=== PATIENT | male | born 1950 | race Caucasian/White ===

== ENCOUNTER 2016-09-08 15:13 | Emergency (ER) | payer OTHER, MEDICAID ==
--- NOTE | 2016-09-08 15:11 | EDPHY ---
H & P Constitutional: Initial Vital Signs Temperature (C) 37.0 C 09/08/16 16:00 Heart Rate 72 09/08/16 16:00 Respiratory Rate 16 09/08/16 16:00 Blood Pressure 109/73 09/08/16 16:00 O2 Sat (%) 93 09/08/16 16:00 O2 Delivery Mode Nasal Cannula O2 (L/minute) 2 Allergies/Adverse Reactions: No Known Drug Allergies Allergy (Verified 09/08/16 16:45) Medical Decision Making - Diagnostics Imaging Results: Imaging Impressions Chest X-Ray 09/08/16 15:20 Impression: Findings suggestive of airways disease are noted with no superimposed acute abnormality identified. Imaging: I viewed and interpreted images myself (Negative.) ED Course/Re-evaluation: CHIEF COMPLAINT: Syncope HISTORY OF PRESENT ILLNESS: This patient is a 65-year-old male arriving by EMS under Cardiac Alert who presents to the Emergency Department following two witnessed episodes of syncope this afternoon. He reports that he was standing in a food line when he felt overheated and lightheaded prior to his first syncopal episode. Per EMS, he was pale and diaphoretic at the time of their arrival and had one additional episode of syncope prior to transport. Upon arrival, he complains of persistent generalized weakness. He denies dyspnea, chest pain or pressure, or any additional complaints. He denies history of cardiac disease. REVIEW OF SYSTEMS: A 10 point review of systems was performed and is negative with the exception of the elements mentioned in the history of present illness. PHYSICAL EXAM: HR, BP, O2 Sat, RR. Temp noted General Appearance: Alert, well hydrated, appropriate, and non-toxic appearing. Head: Atraumatic without scalp tenderness or obvious injury Eyes: Pupils equal, round, reactive to light and accommodation, EOMI, no trauma , no injection. Ears: Clear bilaterally, no perforation, normal landmarks Nose: Atraumatic, no rhinorrhea, clear. Throat: There is no erythema or exudates, no lesions, normal tonsils, mucus membranes moist. Neck: Supple, 2+ carotid upstroke, nontender, no lymphadenopathy. Respiratory: No retractions, no distress, no wheezes, and no accessory muscle use. Lungs are clear to auscultation bilaterally. Cardiovascular: Regular rate and rhythm, no murmurs, rubs, or gallops. Bilateral carotid, radial, dorsalis pedis, and posterior tibial pulses intact. Good capillary refill all extremities. Gastrointestinal: Abdomen is soft, nontender, non-distended, no masses, no rebound, no guarding, no peritoneal signs. Musculoskeletal: Normal active ROM of all extremities, atraumatic. Neurological: Alert, appropriate, and interactive. The patient has normal DTRs and non-focal cranial nerves, motor, sensory, and cerebellar exam. Skin: No rashes, good turgor, no nodules on palpation. Past medical history: Denies. Past surgical history: Denies. Family history: Denies. Social history: Lives in [facility]. Airlifted in from [place]. No tobacco use. Smokes marijuana occasionally. DIFFERENTIAL DIAGNOSIS: The differential diagnosis for the patient's syncope included but was not limited to vasovagal syncope, arrhythmia, dehydration, cardiogenic causes, neurogenic causes, and blood loss. EKG INTERPRETATION: The 12 lead EKG was interpreted by myself: Sinus rhythm, rate 72; borderline prolonged QT interval; nonspecific T abnormalities in lateral leads; non- ischemic. See hard copy and/or "tracemaster" electronic copy for interpretation. MEDICAL DECISION MAKIN: Cardiac alert called in by EMS. 1510: Dr. Rivera, management trainee marketing, at bedside. 1513: Took EMS report at bedside. 1515: Cardiac alert downgraded by myself and Dr. Rivera after obtaining an EKG without ST changes. This 65-year-old male presents following two syncopal episodes with complaint of persistent generalized weakness. Cardiac alert was originally called by EMS but has since been downgraded by myself after EKG was obtained without apparent ST changes. At time of arrival, he is alert and answering questions appropriately. He denies chest pain or pressure. He has no significant findings on exam. Vital signs within normal limits. Will proceed with labs and chest x- ray. Labs obtained and are unremarkable. Chest x-ray is normal. I discussed results with my patient and my suspicion of vasovagal syncopal episode. I recommended to him that he establish care with a PCP and follow-up this week. He is given at-home care instructions and customary return precautions. He will be discharged home in good condition. - Data Points Laboratory Results: Laboratory Results 09/08/16 15:18 09/08/16 15:18 09/08/16 09/08/16 09/08/16 15:18 15:18 15:18 WBC 8.38 10^3/uL 10^3/uL (3.80-9.50) RBC 5.37 10^6/uL 10^6/uL (4.40-6.38) Hgb 17.4 g/dL g/dL (13.7-17.5) Hct 48.0 % % (40.0-51.0) MCV 89.4 fL fL (81.5-99.8) MCH 32.4 pg pg (27.9-34.1) MCHC 36.3 g/dL g/dL (32.4-36.7) RDW 13.6 % % (11.5-15.2) Plt Count 301 10^3/uL 10^3/uL (150-400) MPV 9.4 fL fL (8.7-11.7) Neut % (Auto) 78.9 % H % (39.3-74.2) Lymph % (Auto) 11.2 % L % (15.0-45.0) [place] % (Auto) 8.7 % % (4.5-13.0) Eos % (Auto) 0.2 % L % (0.6-7.6) Baso % (Auto) 0.5 % % (0.3-1.7) Nucleat RBC Rel Count 0.0 % % (0.0-0.2) Absolute Neuts (auto) 6.61 10^3/uL H 10^3/uL (1.70-6.50) Absolute Lymphs (auto) 0.94 10^3/uL L 10^3/uL (1.00-3.00) Absolute Monos (auto) 0.73 10^3/uL 10^3/uL (0.30-0.80) Absolute Eos (auto) 0.02 10^3/uL L 10^3/uL (0.03-0.40) Absolute Basos (auto) 0.04 10^3/uL 10^3/uL (0.02-0.10) Absolute Nucleated RBC 0.00 10^3/uL 10^3/uL (0-0.01) Immature Gran % 0.5 % % (0.0-1.1) Immature Gran # 0.04 10^3/uL 10^3/uL (0.00-0.10) Turbidity Cancelled Sodium 139 mEq/L mEq/L Cancelled (134-144) Potassium 4.8 mEq/L mEq/L Cancelled (3.5-5.2) Chloride 103 mEq/L mEq/L Cancelled (97-110) Carbon Dioxide 20 mEq/l L mEq/l Cancelled (22-31) Anion Gap 16 mEq/L mEq/L Cancelled (8-16) BUN 35 mg/dL H mg/dL Cancelled (7-23) Creatinine 1.3 mg/dL mg/dL Cancelled (0.7-1.3) Estimated GFR 55 Cancelled Glucose 153 mg/dL H mg/dL Cancelled (70-100) Calcium 10.0 mg/dL mg/dL Cancelled (8.5-10.4) Magnesium 2.2 mg/dL mg/dL Cancelled (1.6-2.3) Troponin I < 0.012 ng/mL ng/mL (0-0.034) NT-Pro-B Natriuret Pep 481 pg/mL H pg/mL (0-125) Specimen Hemolysis Cancelled Departure - Departure Disposition: Home, Routine, Self-Care Clinical Impression: Vasovagal syncope Condition: Good Instructions: Syncope (ED) Additional Instructions: 1. Drink plenty of fluids and rest until you are feeling back to normal. 2. Follow-up with a primary care provider for further evaluation in the next 5- 7 days. We have referred you to either our on-call Line Inspector or, if you would like to establish care with [facility], we have included their contact information for you as well. 3. Return to the Emergency Department if you experience additional fainting episodes or chest pain, shortness of breath, dizziness, or other serious concerns. Referrals: Graciela Carreon MD [[facility] Primary Care Provider] - As per Instructions [facility],. [Clinic] - As per Instructions Report Scribed for: Roby Perez Report Scribed by: Danelle Mcdaniel Date of Report: 09/08/16 Time of Report: 15:13
[2016-09-08] MEDS ORDERED: ONDANSETRON 4 MG/2 ML VIAL ONE (15:25)
--- NOTE | 2016-09-08 15:29 | CPEKG ---
Heart Rate: 72 RR Interval: 833 P-R Interval: 164 QRSD Interval: 90 QT Interval: 436 QTC Interval: 478 P [place]: 62 QRS [place]: 73 T Wave [place]: 92 EKG Severity - ABNORMAL ECG - EKG Impression: SINUS RHYTHM EKG Impression: NONSPECIFIC T ABNORMALITIES, LATERAL LEADS EKG Impression: BORDERLINE PROLONGED QT INTERVAL Electronically Signed By: Roby Perez 08-Sep-2016 20:16:29
[2016-09-08 15:30] LABS: % IMMATURE GRANULYOCYTES 0.5 % (0.0-1.1); ABSOLUTE IMMATURE GRANULOCYTES 0.04 10^3/uL (0.00-0.10); ADD DIFF? NO; ADD MORPH? NO; ADD SCAN? NO; ATYPICAL LYMPHOCYTE FLAG 20 (0-99); FRAGMENT RBC FLAG 0 (0-99); HEMOGLOBIN 17.4 g/dL (13.7-17.5); LEFT SHIFT FLG 10 (0-99); LIPEMIA HEMOLYSIS FLAG 90 (0-99); MEAN CELL HEMOGLOBIN 32.4 pg (27.9-34.1); MEAN CELL HEMOGLOBIN CONCENTR. 36.3 g/dL (32.4-36.7); MEAN CELL VOLUME 89.4 fL (81.5-99.8); MEAN PLATELET VOLUME 9.4 fL (8.7-11.7); PLATELET CLUMPS FLAG 40 (0-99); PLATELET COUNT 301 10^3/uL (150-400); RED BLOOD CELL COUNT 5.37 10^6/uL (4.40-6.38); RED CELL DISTRIBUTION WIDTH 13.6 % (11.5-15.2)
[2016-09-08 15:50] LABS: ANION GAP 16 mEq/L (8-16); CARBON DIOXIDE 20 mEq/l (22-31); CHLORIDE 103 mEq/L (97-110); CREATININE 1.3 mg/dL (0.7-1.3); GLOMERULAR FILTRATION RATE 55; GLUCOSE 153 mg/dL (70-100); MAGNESIUM 2.2 mg/dL (1.6-2.3); POTASSIUM 4.8 mEq/L (3.5-5.2); SODIUM 139 mEq/L (134-144)
[2016-09-08 15:51] LABS: TROPONIN I < 0.012 ng/mL (0-0.034)
[2016-09-08 16:37] VITALS: RESP 16
[2016-09-08 17:22] VITALS: BP 109/71; PULSE 75; TEMP 98.1; O2SAT 92
== END 2016-09-08 17:20 | disposition home or self-care (01) ==
LOC: EDUNIT#
DX: R55 Syncope and collapse (principal)
CPT/HCPCS: 71020; 93005; J2405

== ENCOUNTER 2016-11-19 11:08 | Emergency (ER) | payer OTHER, MEDICAID ==
[2016-11-19 11:21] VITALS: TEMP 97.7
--- NOTE | 2016-11-19 12:07 | CPEKG ---
Heart Rate: 60 RR Interval: 1000 P-R Interval: 188 QRSD Interval: 82 QT Interval: 432 QTC Interval: 432 P [place]: 47 QRS [place]: 56 T Wave [place]: 71 EKG Severity - NORMAL ECG - EKG Impression: SINUS RHYTHM Electronically Signed By: Nba Ventura 19-Nov-2016 13:33:18
[2016-11-19] MEDS ORDERED: ASPIRIN 81 MG CHEWABLE TAB PO ONE (12:15)
[2016-11-19 12:21] VITALS: RESP 18; O2SAT 96
--- NOTE | 2016-11-19 12:31 | EDPHY ---
H & P Smoking Status: Current some day smoker Time Seen by Provider: 11/19/16 12:02 HPI/ROS: HPI: Hakan Corona is a 65 yrs, male who presents with Chief Complaint: pain in lungs Location: anterior generalized chest Quality: sharp, burning pain Duration: 3 weeks Signs and Symptoms: no fever, no shortness of breath, no nausea, no vomiting, no abdominal pain, no leg swelling Timing: intermittent, not worsened with eating/inspiration Severity: 09/18 Context: history of hypothyroidism-out of medications x 2 days, BPH. advises similar pain has occurred intermittently over the last few years. reports regular marijuana use and methamphetamine IV drug use. no hx CAD. father has hax CAD in 60s. retired and lives in his truck. Modifying Factors: appointment with PCP Tuesday (5 days) Comment: ROS: Eyes: No blurred vision Respiratory: No shortness of breath, no cough Cardiovascular: + chest pain Gastrointestinal: No nausea, no vomiting no diarrhea Genitourinary: No dysuria Extremities: No myalgias Neurologic: No weakness, no numbness Skin: No rashes Hematologic: No bruising, no bleeding MEDICAL/SURGICAL HISTORY: see above (Cathy Salinas) Past Medical/Surgical History: polysubstance abuse, BPH, hypothyroidism (Cathy Salinas) Social History: retired. lives in truck. (Cathy Salinas) Physical Exam: CONSTITUTIONAL: unkempt physically fit white male, awake and alert, no obvious distress HEENT: Atraumatic and normocephalic, PERRL, EOMI. Tympanic membranes clear. . Oropharynx clear, no exudate and moist pink mucosa. Airway patent. No lymphadenopathy. No meningismus. Cardiovascular: Normal S1/S2, regular rate, regular rhythm, without murmur rub or gallop. PULMONARY/CHEST: Symmetrical and nontender. Clear to auscultation bilaterally Good air movement. No accessory muscle usage. ABDOMEN: Soft, nondistended, nontender, no rebound, no guarding, no peritoneal signs, no masses or organomegaly. No CVAT. EXTREMITIES: 2/2 pulses, no deformities, no clubbing, no cyanosis or edema. NEUROLOGICAL: no focal neuro deficits. GCS 15. SKIN: Warm and dry, leathery, no erythema. no rash. Good capillary refill. (Cathy Salinas) Constitutional: Initial Vital Signs Temperature (C) 36.5 C 11/19/16 11:18 Heart Rate 67 11/19/16 11:18 Respiratory Rate 22 H 11/19/16 11:18 Blood Pressure 168/95 H 11/19/16 11:18 O2 Sat (%) 99 11/19/16 11:18 O2 Delivery Mode Room Air Allergies/Adverse Reactions: No Known Drug Allergies Allergy (Verified 09/08/16 16:45) Home Medications: Medication Instructions Recorded Naproxen [Naprosyn] 500 mg PO BIDMEAL PRN #10 tablet 11/19/16 Medical Decision Making - Diagnostics EKG Interpretation: EKG: Complete interpretation has been separately recorded in the [employer] archive. Summary impression: Sinus rhythm (Nba Ventura) 12 lead EKG: Indication: chest pain Rhythm: normal sinus [place]: normal QRS: normal ST segments: normal INTERPRETATION: no acute ischemic changes The 12 lead EKG was interpreted by myself. (Cathy Salinas) ED Course/Re-evaluation: labs, CXR, oral medication, EKG ordered EKG: NSR. no ST ischemic changes. troponin wnl. pain x 3 weeks; second troponin not indicated. given aspirin. atypical chest pain. Wells Criteria/PERC rule low for PE; no hypoxia, HR 60s. Potassium 5.4 with normal renal function; PO Kayexalate 15 mg given patient requesting narcotic pain medication since arrival to ER. suspect seeking behavior. given Ultram with moderate relief \follow up PCP Tuesday for repeat Potassium level and Cardiology 1-2 weeks. advised recreational drug use cessation but patient not amenable (Cathy Salinas) Other Provider: PHYSICIAN DOCUMENTATION: The patient was evaluated and managed by the Physician Radiology Specialist. My co- signature indicates that I have reviewed this chart and I agree with the findings and plan of care as documented. I am the secondary supervising physician. (Nba Ventura) - Data Points Laboratory Results: Laboratory Results 11/19/16 12:50 11/19/16 12:50 11/19/16 11/19/16 12:50 12:50 WBC 10.06 10^3/uL H 10^3/uL (3.80-9.50) RBC 4.56 10^6/uL 10^6/uL (4.40-6.38) Hgb 14.6 g/dL g/dL (13.7-17.5) Hct 42.5 % % (40.0-51.0) MCV 93.2 fL fL (81.5-99.8) MCH 32.0 pg pg (27.9-34.1) MCHC 34.4 g/dL g/dL (32.4-36.7) RDW 14.1 % % (11.5-15.2) Plt Count 311 10^3/uL 10^3/uL (150-400) MPV 9.0 fL fL (8.7-11.7) Neut % (Auto) 72.6 % % (39.3-74.2) Lymph % (Auto) 11.8 % L % (15.0-45.0) [place] % (Auto) 11.4 % % (4.5-13.0) Eos % (Auto) 2.9 % % (0.6-7.6) Baso % (Auto) 0.7 % % (0.3-1.7) Nucleat RBC Rel Count 0.0 % % (0.0-0.2) Absolute Neuts (auto) 7.30 10^3/uL H 10^3/uL (1.70-6.50) Absolute Lymphs (auto) 1.19 10^3/uL 10^3/uL (1.00-3.00) Absolute Monos (auto) 1.15 10^3/uL H 10^3/uL (0.30-0.80) Absolute Eos (auto) 0.29 10^3/uL 10^3/uL (0.03-0.40) Absolute Basos (auto) 0.07 10^3/uL 10^3/uL (0.02-0.10) Absolute Nucleated RBC 0.00 10^3/uL 10^3/uL (0-0.01) Immature Gran % 0.6 % % (0.0-1.1) Immature Gran # 0.06 10^3/uL 10^3/uL (0.00-0.10) Sodium 136 mEq/L mEq/L (134-144) Potassium 5.4 mEq/L H mEq/L (3.5-5.2) Chloride 101 mEq/L mEq/L (97-110) Carbon Dioxide 24 mEq/l mEq/l (22-31) Anion Gap 11 mEq/L mEq/L (8-16) BUN 11 mg/dL mg/dL (7-23) Creatinine 0.6 mg/dL L mg/dL (0.7-1.3) Estimated GFR > 60 Glucose 94 mg/dL mg/dL (70-100) Calcium 8.9 mg/dL mg/dL (8.5-10.4) Total Bilirubin 0.9 mg/dL mg/dL (0.1-1.4) AST 51 IU/L IU/L (17-59) ALT 20 IU/L L IU/L (21-72) Alkaline Phosphatase 65 IU/L IU/L (38-126) Troponin I < 0.012 ng/mL ng/mL (0-0.034) NT-Pro-B Natriuret Pep 232 pg/mL H pg/mL (0-125) Total Protein 6.9 g/dL g/dL (6.3-8.2) Albumin 4.0 g/dL g/dL (3.5-5.0) Lipase < 10.0 IU/L L IU/L (23-300) Specimen Hemolysis 121 Medications Given: Discontinued Medications Aspirin (Aspirin) 324 mg PO EDNOW ONE Stop: 11/19/16 12:16 Last Admin: 11/19/16 12:20 Dose: 324 mg Sodium Polystyrene Sulfonate (Kayexalate) 15 gm PO EDNOW ONE Stop: 11/19/16 13:43 Last Admin: 11/19/16 14:06 Dose: 15 gm Departure - Departure Disposition: Home, Routine, Self-Care Clinical Impression: Atypical chest pain Condition: Good Instructions: Chest Pain (ED) Additional Instructions: Keep follow up appointment with PCP on Tuesday; needs repeat potassium level Referrals: NONE *PRIMARY CARE P,. [Primary Care Provider] - As per Instructions Roge Flaherty MD [Medical Doctor] - As per Instructions Prescriptions: Naproxen [Naprosyn] 500 mg PO BIDMEAL PRN #10 tablet PRN Reason: Pain, Moderate
[2016-11-19 12:59] LABS: % IMMATURE GRANULYOCYTES 0.6 % (0.0-1.1); ABSOLUTE IMMATURE GRANULOCYTES 0.06 10^3/uL (0.00-0.10); ADD DIFF? NO; ADD MORPH? NO; ADD SCAN? NO; ATYPICAL LYMPHOCYTE FLAG 20 (0-99); FRAGMENT RBC FLAG 0 (0-99); HEMATOCRIT 42.5 % (40.0-51.0); HEMOGLOBIN 14.6 g/dL (13.7-17.5); LEFT SHIFT FLG 0 (0-99); LIPEMIA HEMOLYSIS FLAG 90 (0-99); MEAN CELL HEMOGLOBIN CONCENTR. 34.4 g/dL (32.4-36.7); MEAN CELL VOLUME 93.2 fL (81.5-99.8); PLATELET CLUMPS FLAG 10 (0-99); PLATELET COUNT 311 10^3/uL (150-400); RED BLOOD CELL COUNT 4.56 10^6/uL (4.40-6.38); RED CELL DISTRIBUTION WIDTH 14.1 % (11.5-15.2)
[2016-11-19 13:15] LABS: ALANINE AMINOTRANSFERASE 20 IU/L (21-72); ALKALINE PHOSPHATASE 65 IU/L (38-126); ANION GAP 11 mEq/L (8-16); ASPARTATE AMINOTRANSFERASE 51 IU/L (17-59); BILIRUBIN,TOTAL 0.9 mg/dL (0.1-1.4); CALCIUM 8.9 mg/dL (8.5-10.4); CARBON DIOXIDE 24 mEq/l (22-31); CHLORIDE 101 mEq/L (97-110); CREATININE 0.6 mg/dL (0.7-1.3); GLOMERULAR FILTRATION RATE > 60; GLUCOSE 94 mg/dL (70-100); POTASSIUM 5.4 mEq/L (3.5-5.2); SODIUM 136 mEq/L (134-144); SPECIMEN HEMOLYSIS 121; TOTAL PROTEIN 6.9 g/dL (6.3-8.2)
[2016-11-19 13:25] LABS: TROPONIN I < 0.012 ng/mL (0-0.034)
[2016-11-19] MEDS ORDERED: SODIUM POLY SULF 15 GM/60 ML BOTTLE PO ONE (13:42)
[2016-11-19] MEDS ORDERED: traMADol 50 MG TAB PO ONE (14:07)
[2016-11-19 14:10] VITALS: BP 155/91; PULSE 64
== END 2016-11-19 14:26 | disposition home or self-care (01) ==
DX: R07.89 Other chest pain (principal); F17.200 Nicotine dependence, unspecified, uncomplicated

== ENCOUNTER 2018-03-22 22:32 | Emergency (ER) | payer OTHER, MEDICAID ==
[2018-03-22] MEDS ORDERED: NS 1,000 ML IV ONE (22:41)
[2018-03-22 22:50] VITALS: BP 149/94
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
== END 2018-03-23 00:05 | disposition left against medical advice (07) ==
LOC: EDUNIT#
DX: R09.89 Other specified symptoms and signs involving the circulatory and respiratory systems (principal); X08.8XXA Exposure to other specified smoke, fire and flames, initial encounter
CPT/HCPCS: G0390